=== PATIENT | female | born 1995 | race Caucasian/White ===

== ENCOUNTER 2017-12-28 22:33 | Emergency (ER) | payer BC ==
[~2017-12-28] VITALS: Ht 170.2 cm; Wt 56.5 kg
[2017-12-28 22:38] VITALS: TEMP 37.1; Ht 170.2 cm; Wt 56.5 kg
[2017-12-28] MEDS ORDERED: SODIUM CHLORIDE 0.9% 1000ML 1,000 ML IV STA (22:46)
[2017-12-28] MEDS ORDERED: KETOROLAC TROMETHAMINE 30 MG/ML VIAL IV STA (22:46)
[2017-12-28] MEDS ORDERED: LISD40CA PO (22:59)
[2017-12-28 23:00] VITALS: O2SAT 97
--- NOTE | 2017-12-28 23:09 | DIAGNOSTIC IMAGING REPORT ---
CHEST ONE VIEW PORTABLE HISTORY: 22 years-old Female CHEST PAIN acute atypical chest pain COMPARISON: None available TECHNIQUE: Portable AP view of the chest. FINDINGS: The cardiomediastinal and hilar silhouettes are within normal limits. No pneumothorax, pleural effusion, focal airspace consolidation or overt pulmonary edema. Bones of the chest appear grossly intact. IMPRESSION: No acute process. The above report was generated using voice recognition software. It may contain grammatical, syntax or spelling errors. Electronically signed by: Warren Borden M.D. 12/28/2017 11:08 PM Dictated Date/Time: 12/28/2017 11:04 PM
[2017-12-28 23:28] LABS: BASO % 0.1 %; BASO ABS # 0.01 K/uL (0-0.2); EOS % 0.1 %; EOS ABS # 0.01 K/uL (0-0.5); HEMOGLOBIN 14.1 g/dL (12.0-16.0); IG# 0.02 K/uL (0.00-0.02); LYMPH % 10.8 %; LYMPH ABS # 0.76 K/uL (1.2-3.4); MEAN CELL VOLUME 93.8 fL (80-100); MEAN CORPUSCULAR HEMOGLOBIN 32.3 pg (25-34); MEAN CORPUSCULAR HGB CONC 34.4 g/dl (32-36); MEAN PLATELET VOLUME 10.5 fL (7.4-10.4); MONO % 11.3 %; NEUT % 77.4 %; NEUT ABS # 5.46 K/uL (1.4-6.5); PLATELET COUNT 235 K/uL (130-400); RED CELL DISTRIBUTION WIDTH CV 12.5 % (11.5-14.5); WHITE BLOOD COUNT 7.06 K/uL (4.8-10.8)
[2017-12-28 23:47] LABS: ALBUMIN 3.8 gm/dl (3.4-5.0); CALCIUM 8.4 mg/dl (8.5-10.1); CREATININE 0.84 mg/dl (0.60-1.20); POTASSIUM 3.7 mmol/L (3.5-5.1)
[2017-12-28 23:50] LABS: INFLUENZA B ANTIGEN Neg for Influ B (NEG)
[2017-12-29 00:31] VITALS: BP 110/76; PULSE 79; O2SAT 99
--- NOTE | 2017-12-29 01:40 | EMERGENCY ROOM VISIT NOTE ---
History First contact with patient: 22:41 Chief Complaint: CARDIAC ASSESSMENT Stated Complaint: CHEST PAINS, SWOLLEN THROAT, FEVER History of Present Illness The patient is a 22 year old female who presents to the Emergency Room with complaints of fever, chills, cough, body aches, congestion, sore throat and chest pains for the past day. Patient went to urgent care and had a negative strep test and x-ray. She had an EKG that was normal. She was sent here after being given aspirin and Tylenol for further evaluation workup. Patient states coughing and deep inspiration make that chest pain worse that is not constant. T-max 102. Patient denies dyspnea, abdominal pain, leg pain or swelling, dysphagia, neck stiffness, recent travel, vomiting, diarrhea, earache. She did not receive the flu vaccine. Review of Systems An 10 system review of systems was completed with positives and pertinent negatives listed in the HPI. Past Medical/Surgical History ADHD Social History Smoking Status: Never Smoker Smokeless Tobacco Use: No Alcohol Use: occasionally Drug Use: none Occupation Status: [employer] student Current/Historical Medications Scheduled Lisdexamfetamine Dimesylate (Vyvanse), 40 MG PO DAILY Physical Exam Vital Signs Date Time Temp Pulse Resp B/P (MAP) Pulse Ox O2 Delivery O2 Flow Rate FiO2 12/29/17 00:31 79 14 110/76 99 12/28/17 23:03 88 12/28/17 23:00 96 Room Air 12/28/17 23:00 97 Room Air 12/28/17 22:38 37.1 103 18 121/74 95 Room Air Physical Exam VITALS: Vitals are noted on the nurse's note and reviewed by myself. Vital signs stable. GENERAL: Pleasant female, in no acute distress, nondiaphoretic, well-developed well-nourished. SKIN: The skin was without rashes, erythema, edema, or bruising. There is no tenting of the skin. Capillary reflex less than 2 seconds. HEAD: Normocephalic atraumatic. EARS: External auditory canals clear, tympanic membranes pearly wood without erythema or effusion bilaterally. EYES: Pupils equal round and reactive to light and accommodation. Conjunctivae without injection, sclerae without icterus. Extraocular movements intact. NOSE: Patent, turbinates without inflammation or discharge. No sinus tenderness. MOUTH: Mucous membranes moist. Pharynx without erythema or exudate. Uvula midline. Airway patent. Tongue does not deviate. NECK: Supple without nuchal rigidity. No lymphadenopathy. No thyromegaly. Cervical spine is nontender. No JVD. HEART: Regular rate and rhythm without murmurs gallops or rubs. Chest nontender to palpation LUNGS: Clear to auscultation bilaterally without wheezes, rales or rhonchi. No retractions or accessory muscle use. ABDOMEN: Positive bowel sounds x 4. Normal tympanic percussion. Soft, nontender, without masses or organomegaly. Rodrigez sign negative. No guarding or rebound tenderness. No CVA tenderness MUSCULOSKELETAL: No muscle atrophy, erythema, or edema noted. NEURO: Patient was alert and oriented to person place and time. Normal sensation to light and sharp touch. No focal neurological deficits. Medical Decision & Procedures Laboratory Results 12/28/17 23:11 Red Blood Count 4.37, Mean Corpuscular Volume 93.8, Mean Corpuscular Hemoglobin 32.3, Mean Corpuscular Hemoglobin Concent 34.4, Mean Platelet Volume 10.5, Neutrophils (%) (Auto) 77.4, Lymphocytes (%) (Auto) 10.8, Monocytes (%) (Auto) 11.3, Eosinophils (%) (Auto) 0.1, Basophils (%) (Auto) 0.1, Neutrophils # (Auto ) 5.46, Lymphocytes # (Auto) 0.76, Monocytes # (Auto) 0.80, Eosinophils # (Auto ) 0.01, Basophils # (Auto) 0.01 12/28/17 23:11 Test 12/28/17 23:11 12/28/17 23:15 12/28/17 23:24 White Blood Count 7.06 K/uL (4.8-10.8) Red Blood Count 4.37 M/uL (4.2-5.4) Hemoglobin 14.1 g/dL (12.0-16.0) Hematocrit 41.0 % (37-47) Mean Corpuscular Volume 93.8 fL (80-100) Mean Corpuscular Hemoglobin 32.3 pg (25-34) Mean Corpuscular Hemoglobin Concent 34.4 g/dl (32-36) Platelet Count 235 K/uL (130-400) Mean Platelet Volume 10.5 fL (7.4-10.4) Neutrophils (%) (Auto) 77.4 % Lymphocytes (%) (Auto) 10.8 % Monocytes (%) (Auto) 11.3 % Eosinophils (%) (Auto) 0.1 % Basophils (%) (Auto) 0.1 % Neutrophils # (Auto) 5.46 K/uL (1.4-6.5) Lymphocytes # (Auto) 0.76 K/uL (1.2-3.4) Monocytes # (Auto) 0.80 K/uL (0.11-0.59) Eosinophils # (Auto) 0.01 K/uL (0-0.5) Basophils # (Auto) 0.01 K/uL (0-0.2) RDW Standard Deviation 43.0 fL (36.4-46.3) RDW Coefficient of Variation 12.5 % (11.5-14.5) Immature Granulocyte % (Auto) 0.3 % Immature Granulocyte # (Auto) 0.02 K/uL (0.00-0.02) Anion Gap 6.0 mmol/L (3-11) Est Creatinine Clear Calc Drug Dose 93.7 ml/min Estimated GFR () 114.3 Estimated GFR (Non- 98.7 BUN/Creatinine Ratio 15.0 (10-20) Calcium Level 8.4 mg/dl (8.5-10.1) Total Bilirubin 0.3 mg/dl (0.2-1) Direct Bilirubin 0.1 mg/dl (0-0.2) Aspartate Amino Transf (AST/SGOT) 22 U/L (15-37) Alanine Aminotransferase (ALT/SGPT) 15 U/L (12-78) Alkaline Phosphatase 60 U/L (45-117) Total Protein 8.0 gm/dl (6.4-8.2) Albumin 3.8 gm/dl (3.4-5.0) Lipase 126 U/L (73-393) Human Chorionic Gonadotropin, Qual NEG (NEG) Influenza Type A Antigen Neg for Influ A (NEG) Influenza Type B Antigen Neg for Influ B (NEG) Bedside Troponin I < 0.030 ng/ml (0-0.045) Medications Administered Medications (Trade) Dose Ordered Sig/Gay Route Start Time Stop Time Status Last Admin Dose Admin Sodium Chloride 1,000 ml @ 999 mls/hr Q1H1M STAT IV 12/28/17 22:46 12/28/17 23:46 DC 12/28/17 23:26 999 MLS/HR Ketorolac Tromethamine (Toradol Inj) 10 mg NOW STAT IV 12/28/17 22:46 12/28/17 22:48 DC 12/28/17 23:26 10 MG ED Course Prior records/ancillary studies reviewed. Triage Nursing notes reviewed. The patient's history was concerning for fever. Differential diagnosis: Etiologies such as viral syndrome, pericarditis, myocarditis, cardiac, otitis, pharyngitis, pneumonia, influenza, meningitis, urinary tract infection, sepsis, bacteremia, as well as others were entertained. Physical examination: Patient is alert, interactive and well-appearing playing on her iPhone ER treatment provided: Toradol, IV fluids On reassessment the patient felt better. Diagnostics interpreted by me: ECG: Normal sinus, normal intervals, no acute ST-T wave changes, rate of 83. Brech normal sinus rhythm interpreted by myself. There is no CA depression or diffuse ST elevation concerning for pericarditis. The labs revealed negative influenza. No leukocytosis. Patient reported negative strep test from urgent care. She did not want to do another one. I felt this is reasonable. I reviewed her results from urgent care and it did report a negative strep test. Imaging studies: Chest x-ray with no acute consolidation, pneumothorax or free of my interpretation This appears to be consistent with influenza-like illness. Patient symptoms were abrupt in onset. She was given antipyretics just prior to arrival. She had a negative troponin and EKG. She is well-appearing. No pneumonia. She most likely has a viral illness. The influenza testing is not 100%. Patient is healthy has no real medical problems desires ADHD. She is advised to rest, stay well-hydrated and take medications as directed. She is advised to stay at home until 24 hours for a or return to ER sooner for high fevers, lethargy, neck stiffness, worsening signs or symptoms or as needed. She is advised to follow-up with family care in a few days. By the evaluation outlined above emergent etiologies such as otitis, pharyngitis, pneumonia, meningitis, urinary tract infection, sepsis, bacteremia, as well as others were deemed relatively unlikely. The pt informed about the findings as listed above. All questions were answered and pleased with the treatment. Return instructions were outlined and the patient was discharged in stable condition. Case reviewed with my attending Referral: The patient was referred back to their primary care physician for follow-up in 2 to 3 days for a recheck of the current condition. The chart was completed utilizing [employer] voice recognition software. Grammatical errors, random word insertions, pronoun errors, and incomplete sentences are an occassional consequence of this system due to software limitations, ambient noise, and hardware issues. Any formal questions or concerns about the content, text, or information contained within the body of this dictation should be directly addressed to the physician training program assistant for clarification. Medical Decision As above Medication Reconcilliation Current Medication List: was personally reviewed by me Blood Pressure Screening Patient's blood pressure: Normal blood pressure Impression Primary Impression: Influenza-like illness Departure Information Dispostion Home / Self-Care Condition GOOD Forms IMPORTANT VISIT INFORMATION Patient Instructions Fever - [facility], My [facility] Additional Instructions Stay at home until you are 24 hours fever free as you are highly contagious. Acetaminophen(Tylenol) may be used for fever or pain. Use 1000mg every six hours as needed. Avoid using more than 3000mg in a 24 hour period. (AND/OR) Ibuprofen(Motrin, Advil) may be used for fever or pain. Use 600mg every six hours as needed. Take with food. Avoid using more than 2400mg in a 24 hour period. Do not use 2400mg per day for more than three consecutive days without physician direction. Prolonged inappropriate use can lead to stomach upset or ulcers. Afrin nasal spray: 2-3 sprays to each nostril twice daily as needed for congestion. Do not use for more than 3-4 days because it can lead to worsening rebound congestion. Pseudoephedrine(Sudaphed): 30-60mg every 6 hours as needed for nasal congestion. Do not take this with other stimulant products or supplements. Rest and drink plenty of fluids. Controlling your fever with Tylenol and Ibuprofen as above will make you feel better. Wash your hands after nose blowing, sneezing, or coughing. Most germs are spread through contact, therefore improper hygiene may result in your close contacts and loved ones becoming ill just like you. Continue current medications. Return to the ER for severe headache, neck stiffness, chest pain, difficulty breathing, fevers, vomiting, worsening of your condition, or as needed. Follow up with your primary physician this week for a recheck of your current condition.
== END 2017-12-29 00:32 | disposition home or self-care (01) ==
LOC: C.EDB 22:35
DX: R50.9 Fever, unspecified (principal); R05 Cough; R07.9 Chest pain, unspecified; J02.9 Acute pharyngitis, unspecified; F90.9 Attention-deficit hyperactivity disorder, unspecified type; Z79.899 Other long term (current) drug therapy